=== PATIENT | female | born 2000 | race Caucasian/White ===

== ENCOUNTER 2024-10-09 13:43 | Emergency (ER) | payer OTHER, SELFPAY ==
[2024-10-09 14:02] VITALS: BP 126/84; PULSE 64; RESP 13; TEMP 36.5; O2SAT 98; BMI 22.7
[2024-10-09 18:38] VITALS: BP 124/83; PULSE 63; RESP 16; O2SAT 99
--- NOTE | 2024-10-09 19:01 | ED.WOUNDLAC ---
HPI - Wound/Laceration <Merly Garza PA-C - Last Filed: 10/09/24 19:06> General Chief Complaint: Wound/Laceration Stated Complaint: hand laceration Time Seen by Provider: 10/09/24 14:28 Source: patient Mode of arrival: Ambulatory History of Present Illness HPI narrative: 24-year-old female presents to the ED status post a left hand injury sustained just prior to arrival. Patient cut the left palm of her hand on a chain-link fence. Tdap is up-to-date. Patient is able to move all fingers normally. Bleeding is controlled with pressure. Patient endorses pain at the site of the wound, denies numbness, tingling, weakness. Related Data Allergies Allergy/AdvReac Type Severity Reaction Status Date / Time No Known Drug Allergies Allergy Verified 10/09/24 14:12 Review of Systems <Merly Garza PA-C - Last Filed: 10/09/24 19:06> Constitutional Constitutional: Denies chills, Denies fatigue, Denies fever(s), Denies frequent falls, Denies lethargy and Denies weakness Eyes Eyes: Denies change in vision, Denies eye discharge, Denies irritation and Denies loss of vision ENT Ears, Nose, Mouth, and Throat: Denies change in voice, Denies dizziness, Denies neck pain, Denies sore throat and Denies throat swelling Cardiovascular Cardiovascular: Denies chest pain, Denies irregular heart rhythm, Denies lightheadedness, Denies palpitations, Denies dyspnea, Denies dyspnea on exertion and Denies orthopnea Respiratory Respiratory: Denies cough, Denies dyspnea, Denies dyspnea on exertion and Denies wheezing Gastrointestinal Gastrointestinal: Denies abdominal pain, Denies change in bowel habits, Denies diarrhea, Denies nausea and Denies vomiting Musculoskeletal Musculoskeletal: Denies neck pain and Denies numbness Integumentary/Breasts Skin/Breast: Denies pruritus, Denies erythema, Denies rash and Reports wounds Neurologic Neurologic: Denies behavioral changes, Denies confusion, Denies dizziness, Denies frequent falls, Denies loss of vision, Denies numbness and Denies weakness Psychiatric Psychiatric: Denies anxiety, Denies behavioral changes, Denies confusion, Denies depression, Denies homicidal ideation and Denies suicidal ideation Endocrine Endocrine: Denies fatigue, Denies flushing and Denies palpitations Hematologic/Lymphatic Hematologic/Lymphatic: Denies easy bruising Allergic/Immunologic Allergic/Immunologic: Denies urticaria, Denies throat swelling and Denies wheezing Patient History <Merly Garza PA-C - Last Filed: 10/09/24 19:06> Social History Smoking Status: Unknown if ever smoked Smoking Status: Unknown if ever smoked Exam <Merly Garza PA-C - Last Filed: 10/09/24 19:06> Narrative Exam Narrative: Const General:?cooperative, healthy appearing and comfortable [facility] Head:?normal to inspection Ears:?hearing grossly normal bilaterally Nose:?external nose normal Face and sinus:?normal facial exam and sinuses nontender Mouth:?oral mucosae normal Throat:?posterior oropharynx normal Eyes General:?appearance normal, both eyes and all related structures Neck Neck:?normal visual inspection and no lymphadenopathy noted Resp Effort & Inspection:?normal respiratory effort Auscultation:?clear to auscultation bilaterally Cardio Rate:?regular rate Rhythm:?regular rhythm Integumentary There is an irregular laceration going from the PIP of the pinky finger of the left hand down into the distal palm. Bleeding is controlled with pressure. No deeper structures visualized on exam. Patient is able to move all fingers normally. Strength and sensation is intact. Neurovascularly intact. Neuro General:?patient alert, patient awake and patient oriented x3 Initial Vital Signs Initial Vital Signs: Vital Signs Temperature 97.7 F 10/09/24 14:02 Pulse Rate 64 10/09/24 14:02 Respiratory Rate 13 10/09/24 14:02 Blood Pressure 126/84 10/09/24 14:02 Pulse Oximetry 98 10/09/24 14:02 Oxygen Delivery Method Room Air 10/09/24 14:02 <Renuka Serrano DO - Last Filed: 10/09/24 19:13> Initial Vital Signs Initial Vital Signs: Vital Signs Temperature 97.7 F 10/09/24 14:02 Pulse Rate 64 10/09/24 14:02 Respiratory Rate 13 10/09/24 14:02 Blood Pressure 126/84 10/09/24 14:02 Pulse Oximetry 98 10/09/24 14:02 Oxygen Delivery Method Room Air 10/09/24 14:02 Procedures <Merly Garza PA-C - Last Filed: 10/09/24 19:06> Laceration Repair Laceration 1: Site: hand Side (If applicable): left Size (cm): 5 Description: irregular Depth: simple, single layer Local Anesthetic: lidocaine 1% Amount of anesthesia used (mL): 3 Pre-repair: wound explored, irrigated extensively and deep structures intact Skin layer closed with: nylon Skin layer suture size: 5-0 Number of sutures: 11 Course <Merly Garza PA-C - Last Filed: 10/09/24 19:06> Vital Signs Vital signs: Vital Signs - 8 hr 10/09/24 14:02 10/09/24 18:38 Temperature 97.7 F Pulse Rate 64 63 Respiratory Rate 13 16 Blood Pressure 126/84 124/83 Pulse Oximetry 98 99 Oxygen Delivery Method Room Air Room Air <Renuka Serrano DO - Last Filed: 10/09/24 19:13> Vital Signs Vital signs: Vital Signs - 8 hr 10/09/24 14:02 10/09/24 18:38 Temperature 97.7 F Pulse Rate 64 63 Respiratory Rate 13 16 Blood Pressure 126/84 124/83 Pulse Oximetry 98 99 Oxygen Delivery Method Room Air Room Air MDM - Wound/Laceration <ATUL Hernandez Last Filed: 10/09/24 19:06> MDM Narrative Medical decision making narrative: 24-year-old female presents to the ED status post a left hand injury sustained just prior to arrival. Wound was numbed, well irrigated. No deeper structures noted on exam. No imaging indicated at this time. Laceration was repaired with 11 sutures. Wound care, suture removal, signs of infection discussed with patient. ED return precautions discussed with patient. Patient verbalized understanding. Medical records reviewed: Yes Discharge Plan Departure Patient Disposition: Home Clinical Impression: Laceration Instructions: DI for Laceration Repair Activity Restrictions/Additional Instructions: You were evaluated in the ED today for a hand injury. Your laceration was repaired with a 11 sutures. The sutures will need to be removed in 7-10 days. You may return to the ED, go to a walk-in clinic or your PCP's office for suture removal. Please keep the wound clean and dry for the 1st 24 hours, following which you may wash gently with soap and water. Please refrain from keeping wet dressings on for any length of time. Please watch for signs of infection including worsening redness, swelling, discharge, pain, warmth. Return to the ED if you note any signs of infection. Referrals: Miscellaneous,Doctor, [Primary Care Provider] - Stand Alone Forms: Patient Portal/API/Survey ED Sign-out <Renuka Serrano DO - Last Filed: 10/09/24 19:13> Cosign ED Attending Cosjanaature Attestation: I was immediately available in the department for consultation.
== END 2024-10-09 18:39 | disposition home or self-care (01) ==
PROVIDERS: Emergency Provider Student in an Organized Health Care Education/Training Program
DX: S61.412A Laceration without foreign body of left hand, initial encounter (principal); W45.8XXA Other foreign body or object entering through skin, initial encounter
CPT/HCPCS: 12002; 99282; 99283

== ENCOUNTER 2024-10-16 15:15 | Emergency (ER) | payer OTHER, SELFPAY ==
[2024-10-16 15:30] VITALS: BP 128/78; PULSE 89; RESP 16; TEMP 36.5; O2SAT 97; BMI 22.7
--- NOTE | 2024-10-16 15:43 | PC.NURSE ---
Here for stitches removal. States stitches were put in one week ago today. Pt reports tdap is UTD. No oozing or drainage noted. Pt states she was not put on any antibiotics. States she cut the lower part of her pinky on chain link fence. Pt able to move all fingers. Good profusion to hand. Skin warm and dry
[2024-10-16 16:41] VITALS: RESP 19
--- NOTE | 2024-10-16 18:21 | ED.WOUNDLAC ---
HPI - Wound/Laceration <Merly Garza PA-C - Last Filed: 10/16/24 18:24> General Chief Complaint: Wound/Laceration Stated Complaint: needs to get stitches removed Time Seen by Provider: 10/16/24 15:36 History of Present Illness HPI narrative: 24-year-old female returns to the ED for suture removal from a laceration that was repaired in the ED on 10/09/2024. Patient states that her wound seems to have healed well with no signs of infection. Related Data Allergies Allergy/AdvReac Type Severity Reaction Status Date / Time No Known Drug Allergies Allergy Verified 10/09/24 14:12 Review of Systems <Merly Garza PA-C - Last Filed: 10/16/24 18:24> Constitutional Constitutional: Denies chills, Denies fatigue, Denies fever(s), Denies frequent falls, Denies lethargy and Denies weakness Eyes Eyes: Denies change in vision, Denies eye discharge, Denies irritation and Denies loss of vision ENT Ears, Nose, Mouth, and Throat: Denies change in voice, Denies dizziness, Denies neck pain, Denies sore throat and Denies throat swelling Cardiovascular Cardiovascular: Denies chest pain, Denies irregular heart rhythm, Denies lightheadedness, Denies palpitations, Denies dyspnea, Denies dyspnea on exertion and Denies orthopnea Respiratory Respiratory: Denies cough, Denies dyspnea, Denies dyspnea on exertion and Denies wheezing Gastrointestinal Gastrointestinal: Denies abdominal pain, Denies change in bowel habits, Denies diarrhea, Denies nausea and Denies vomiting Musculoskeletal Musculoskeletal: Denies neck pain and Denies numbness Integumentary/Breasts Skin/Breast: Denies pruritus, Denies erythema, Denies rash and Reports wounds Comments: Laceration requiring suture removal Neurologic Neurologic: Denies behavioral changes, Denies confusion, Denies dizziness, Denies frequent falls, Denies loss of vision, Denies numbness and Denies weakness Psychiatric Psychiatric: Denies anxiety, Denies behavioral changes, Denies confusion, Denies depression, Denies homicidal ideation and Denies suicidal ideation Endocrine Endocrine: Denies fatigue, Denies flushing and Denies palpitations Hematologic/Lymphatic Hematologic/Lymphatic: Denies easy bruising Allergic/Immunologic Allergic/Immunologic: Denies urticaria, Denies throat swelling and Denies wheezing Exam <Merly Garza PA-C - Last Filed: 10/16/24 18:24> Narrative Exam Narrative: Const General:?cooperative, healthy appearing and comfortable [facility] Head:?normal to inspection Ears:?hearing grossly normal bilaterally Nose:?external nose normal Face and sinus:?normal facial exam and sinuses nontender Mouth:?oral mucosae normal Throat:?posterior oropharynx normal Eyes General:?appearance normal, both eyes and all related structures Neck Neck:?normal visual inspection and no lymphadenopathy noted Resp Effort & Inspection:?normal respiratory effort Auscultation:?clear to auscultation bilaterally Cardio Rate:?regular rate Rhythm:?regular rhythm Integumentary Wound to the left palm appears to have healed well. No signs of infection. Patient is neurovascularly intact. Sutures were removed. Neuro General:?patient alert, patient awake and patient oriented x3 Initial Vital Signs Initial Vital Signs: Vital Signs Temperature 97.7 F 10/16/24 15:30 Pulse Rate 89 10/16/24 15:30 Respiratory Rate 16 10/16/24 15:30 Blood Pressure 128/78 10/16/24 15:30 Pulse Oximetry 97 10/16/24 15:30 Oxygen Delivery Method Room Air 10/16/24 15:30 <Renuka Serrano DO - Last Filed: 10/21/24 07:10> Initial Vital Signs Initial Vital Signs: Vital Signs Temperature 97.7 F 10/16/24 15:30 Pulse Rate 89 10/16/24 15:30 Respiratory Rate 16 10/16/24 15:30 Blood Pressure 128/78 10/16/24 15:30 Pulse Oximetry 97 10/16/24 15:30 Oxygen Delivery Method Room Air 10/16/24 15:30 Course <Merly Garza PA-C - Last Filed: 10/16/24 18:24> Vital Signs Vital signs: Vital Signs - 8 hr 10/16/24 15:30 10/16/24 16:41 Temperature 97.7 F Pulse Rate 89 Respiratory Rate 16 19 Blood Pressure 128/78 Pulse Oximetry 97 Oxygen Delivery Method Room Air <DO Daron Cota Last Filed: 10/21/24 07:10> Vital Signs Vital signs: Vital Signs - 8 hr 10/16/24 15:30 10/16/24 16:41 Temperature 97.7 F Pulse Rate 89 Respiratory Rate 16 19 Blood Pressure 128/78 Pulse Oximetry 97 Oxygen Delivery Method Room Air MDM - Wound/Laceration <Merly Garza PA-C - Last Filed: 10/16/24 18:24> MDM Narrative Medical decision making narrative: 24-year-old female returns to the ED for suture removal from a laceration that was repaired in the ED on 10/09/2024. Sutures were removed, wound seems to have approximated well and healed. Recommend patient keep the wound covered for comfort and continued healing. ED return precautions discussed with patient. Patient verbalized understanding. Medical records reviewed: Yes Discharge Plan Departure Patient Disposition: Home Clinical Impression: Encounter for removal of sutures Instructions: DI for Suture Removal Activity Restrictions/Additional Instructions: You were seen in the emergency department for suture removal. Your wound has healed well and the sutures were removed. You may continue to keep the wound covered with a Band-Aid protect it as it further heals. Return to the ED if you note any signs of infection including worsening redness, swelling, discharge, warmth, pain. Referrals: Miscellaneous,Doctor, [Primary Care Provider] - Stand Alone Forms: Patient Portal/API/Survey ED Sign-out <Renuka Serrano DO - Last Filed: 10/21/24 07:10> Cosign ED Attending Lm Attestation: I was immediately available in the department for consultation.
== END 2024-10-16 16:41 | disposition home or self-care (01) ==
PROVIDERS: Emergency Provider Student in an Organized Health Care Education/Training Program
CPT/HCPCS: 99281

== ENCOUNTER 2024-10-28 22:30 | Emergency (ER) | payer OTHER, SELFPAY ==
[2024-10-28 22:43] VITALS: BP 122/84; PULSE 83; RESP 17; TEMP 36.8; O2SAT 98; BMI 22.7
--- NOTE | 2024-10-28 23:40 | ED.WOUNDLAC ---
HPI - Wound/Laceration General Chief Complaint: Wound/Laceration Stated Complaint: infected pinky wound not healing Time Seen by Provider: 10/28/24 22:55 History of Present Illness HPI narrative: 24-year-old female seen originally on October 09 for left hand injury after the patient cut the palm of her hand on a chain-link fence for which she her tetanus was up-to-date had 11 stitches placed and then seen on the again here for suture removal. For the past 12:48 p.m. patient has noticed her her left 5th digit has been come more red swollen tender on range of motion with minimal drainage but no bleeding noted. Patient concerned that infection may be suddenly and and came in to be evaluated. Other than what is stated 14 point review of system is negative Related Data Previous Rx's Medication Instructions Recorded sulfamethoxazole 800 1 tab PO BID #14 tabs 10/28/24 mg-trimethoprim 160 mg tablet (Bactrim DS) Allergies Allergy/AdvReac Type Severity Reaction Status Date / Time No Known Drug Allergies Allergy Verified 10/28/24 22:43 Review of Systems Review of Systems ROS Unobtainable: All systems reviewed & are unremarkable except as noted in HPI and below Exam Narrative Exam Narrative: GENERAL: [24] year old patient appears stated age. Well-developed patient, in mild distress. HEAD: Atraumatic. Normocephalic. EYES: Pupils equal round and reactive. Extraocular motions intact. No scleral icterus. No injection or drainage. EXTREMITIES: No edema or joint tenderness. BACK: Nontender without deformity or crepitance. No flank tenderness. NEURO: AOx3. SKIN: L 5th digit luther side MP harded callous surround open oval shape wound with warmth, erythema but no active drainage with FROM of L 5th digit. Motor/sensory intact +2 rad pulse cap refill<2secs Initial Vital Signs Initial Vital Signs: Vital Signs Temperature 98.3 F 10/28/24 22:43 Pulse Rate 83 10/28/24 22:43 Respiratory Rate 17 10/28/24 22:43 Blood Pressure 122/84 10/28/24 22:43 Pulse Oximetry 98 10/28/24 22:43 Oxygen Delivery Method Room Air 10/28/24 22:43 Course Vital Signs Vital signs: Vital Signs - 8 hr 10/28/24 22:43 Temperature 98.3 F Pulse Rate 83 Respiratory Rate 17 Blood Pressure 122/84 Pulse Oximetry 98 Oxygen Delivery Method Room Air MDM - Wound/Laceration MDM Narrative Medical decision making narrative: Vital signs, nurse triage note, medication list, previous ER visits and all imaging modalities reviewed. Patient given Bactrim here and on DC home rx. Differential diagnosis includes MRSA, cellulitis, abscess. Follow up with PCP in 1-2 weeks if no improvement in symptoms. Discharge Plan Departure Patient Disposition: Home Clinical Impression: Open wound Instructions: DI for Wound Infection Activity Restrictions/Additional Instructions: Return with new or worsening symptoms. Take your medicines as directed. Follow up with PCP 1-2 weeks if no improvement in symptoms Prescriptions: New sulfamethoxazole-trimethoprim [Bactrim DS] 800-160 mg tablet 1 tab PO BID Qty: 14 0RF Referrals: Miscellaneous,Doctor, MD [Primary Care Provider] - Stand Alone Forms: Patient Portal/API/Survey
[2024-10-28] MEDS: TRIMETH/SULFA 160/800 (DS) TABLET 1 TAB PO (23:52)
== END 2024-10-29 00:03 | disposition home or self-care (01) ==
PROVIDERS: Emergency Provider Family Medicine
DX: S61.207A Unspecified open wound of left little finger without damage to nail, initial encounter (principal)
CPT/HCPCS: 99283